=== PATIENT | male | born 1965 | race Caucasian/White ===

== ENCOUNTER 2017-06-05 08:00 | Outpatient (CLI) | payer OTHER | END 2017-06-05 08:01 | disposition home or self-care (01) | LOC: BICULT 08:00 | PROVIDERS: ATTEND Otolaryngology Plastic Surgery within the Head & Neck | DX: E04.1 Nontoxic single thyroid nodule (principal) | CPT/HCPCS: 76536 ==

== ENCOUNTER 2018-05-29 06:47 | Outpatient (CLI) | payer OTHER ==
--- NOTE | 2018-05-29 08:58 | ULT ---
THYROID ULTRASOUND: Date: 05/29/18 HISTORY: Goiter. Nodule. COMPARISON: None. FINDINGS: Thyroid isthmus measures 0.3 cm. Right thyroid lobe measures 1.7 x 5.5 x 1.7 cm. Left thyroid lobe me asures 1.5 x 4.8 x 1.2 cm. In the mid to lower aspect of the right thyroid lobe is a predominantly cystic nodule with a possible peripheral solid component. Nodule measures 1.7 x 1.6 x 1.4 cm. IMPRESSION: Solitary nodule in the right thyroid lobe. Based upon TI-RADS calculator, the nodule has a value of T R4 (lesion is slightly taller than it is wide). Fine needle aspiration is recommended. POS: PRISCA
== END 2018-05-29 06:48 | disposition home or self-care (01) ==
LOC: BICULT 06:47
PROVIDERS: ATTEND Otolaryngology Plastic Surgery within the Head & Neck
DX: E04.1 Nontoxic single thyroid nodule (principal); E04.9 Nontoxic goiter, unspecified
CPT/HCPCS: 76536

== ENCOUNTER 2018-11-26 14:33 | Outpatient (CLI) | payer OTHER ==
--- NOTE | 2018-11-26 15:52 | ULT ---
ULTRASOUND THYROID: DATE: 11/26/2018 HISTORY: Follow-up thyroid nodule in 53-year-old male COMPARISON: Prior thyroid ultrasounds of 05/29/2018, 06/05/2017, 05/06/2016, 05/23/2014, 04/25/2014, 11/18/2013, a nd 11/02/2013. FINDINGS: Isthmus: 0.3 cm AP. Right lobe: 5.0 x 1.6 x 1.8 cm. Left lobe: 4.8 x 1.1 x 1.3 cm. At the lower pole of the right lobe of the thyroid gland, there is a mixed solid and cystic nodule me asuring approximately 2.2 x 1.7 x 1.7 cm. The cystic component, located more superiorly, is 1.2 x 1.4 x 1.5 cm. The solid component has echogenicity that is very similar to that of normal thyroid par enchyma. TIRADS classification: Composition: Mixed cystic and solid, 1 point Echogenicity: Isoechoic, 1 point Shape: Wider than tall on sagittal images (0 points), but taller than wide on transverse image (3 poi nts) Margin: Smooth, 0 points Echogenic foci, none, 0 points. Depending on the interpretation of its shape, this is either a TIRADS category 2-benign, or TIRADS ca tegory 4 (5 total points). However, this nodule has been stable for 5 years, and therefore no further follow-up is recommended. IMPRESSION: Benign solid and cystic nodule in right lobe of thyroid gland, unchanged in 5 years. No further follo w-up is recommended.
== END 2018-11-26 14:34 | disposition home or self-care (01) ==
LOC: BICULT 14:33
PROVIDERS: ATTEND Otolaryngology Plastic Surgery within the Head & Neck
DX: E04.1 Nontoxic single thyroid nodule (principal)
CPT/HCPCS: 76536

== ENCOUNTER 2021-03-16 08:37 | Outpatient (CLI) | payer OTHER | END 2021-03-16 08:38 | disposition home or self-care (01) | LOC: BICULT 08:37 | PROVIDERS: ATTEND Otolaryngology Plastic Surgery within the Head & Neck | DX: E04.1 Nontoxic single thyroid nodule (principal) | CPT/HCPCS: 76536 ==

== ENCOUNTER 2021-07-05 08:29 | Outpatient (CLI) | payer OTHER ==
[2021-07-06 09:12] LABS: SARS-CoV-2 PCR by NAA Not Detected (NotDetected)
== END 2021-07-05 08:30 | disposition home or self-care (01) ==
LOC: LABBT 08:29
PROVIDERS: ATTEND Surgery
DX: Z01.812 Encounter for preprocedural laboratory examination (principal); K40.20 Bilateral inguinal hernia, without obstruction or gangrene, not specified as recurrent; Z20.822 Contact with and (suspected) exposure to COVID-19
CPT/HCPCS: U0003; U0005

== ENCOUNTER 2021-07-10 06:44 | Day surgery (SDC) | payer OTHER ==
[2021-06-28 12:30] VITALS: BMI 27.9
[2021-07-10] MEDS ORDERED: Lidocaine 1% MPF 2 ML VIAL ONE (07:30)
[2021-07-10 07:53] LABS: #Monocytes 0.3 thou/uL (0.11-0.59); #Neutrophils 2.8 thou/uL (1.40-6.50); %Basophils 0.4 % (0.0-1.0); %Eosinophils 0.8 % (0.0-10.0); %Lymphocytes 24.4 % (21.0-51.0); %Monocytes 7.7 % (0.0-10.0); %Neutrophils 66.7 % (42.0-75.0); Mean Corpuscular Hemoglobin 32.5 pg (27.0-31.0); Mean Corpuscular Volume 92.7 fL (78.0-98.0); Mean Platelet Volume 8.1 fL (7.4-10.4); Platelet Count 141 thou/uL (130-400); White Blood Cell (WBC) Count 4.1 thou/uL (4.8-10.8)
[2021-07-10 08:12] LABS: Anion Gap 9 mmol/L (10-20); BUN (Urea Nitrogen) 13 mg/dL (8.4-25.7); Calc. Creatinine Clearance 114 mL/min (70-130); Calcium 9.1 mg/dL (7.8-10.44); Carbon Dioxide 27 mmol/L (22-29); Chloride 105 mmol/L (98-107); Glucose 95 mg/dL (70-105); Potassium 3.8 mmol/L (3.5-5.1); Sodium 137 mmol/L (136-145)
[2021-07-10] MEDS ORDERED: Bupivacaine 0.25% HCL 30 ML VIAL ONE (08:19)
[2021-07-10] MEDS ORDERED: Xylocaine 1% w/ Epi 1:100K 10 ML VIAL ONE (08:19)
[2021-07-10] MEDS ORDERED: Fentanyl 100 MCG/2 ML VIAL ONE ×2 (09:03→11:03)
[2021-07-10] MEDS ORDERED: Scopolamine 1.5 mg/72 hour Patch ONE (09:07)
[2021-07-10] MEDS ORDERED: ceFAZolin 2 GM/Dextrose 50 ML IVPB ONE (09:14)
[2021-07-10] MEDS ORDERED: PROPOFOL 200 MG/20 ML VIAL ONE (09:25)
[2021-07-10] MEDS ORDERED: Lidocaine 1% PF 5 ML VIAL ONE (09:25)
[2021-07-10] MEDS ORDERED: Esmolol 100 MG/10 ML VIAL ONE (09:25)
[2021-07-10] MEDS ORDERED: Rocuronium Bromide 10 MG/ML (10ML VIAL) ONE (09:25)
[2021-07-10] MEDS ORDERED: diphenhydrAMINE 50 MG/ML VIAL ONE (09:25)
[2021-07-10] MEDS ORDERED: Dexamethasone 20 MG/5 ML VIAL ONE (09:25)
[2021-07-10] MEDS ORDERED: Ondansetron PF 4 MG/2 ML Vial ONE (09:25)
[2021-07-10] MEDS ORDERED: Ketorolac Tromethamine 30 MG/ML VIAL ONE (09:25)
[2021-07-10] MEDS ORDERED: Glycopyrrolate 0.2 MG/ML 5 ML SYRINGE ONE (09:25)
[2021-07-10] MEDS ORDERED: HYDROcodone/Acetaminophen 5/325 mg Tablet ONE (12:54)
== END 2021-07-10 13:30 | disposition home or self-care (01) ==
LOC: SDC 06:44
PROVIDERS: ATTEND Surgery
PROC: 0YUA4JZ Supplement Bilateral Inguinal Region with Synthetic Substitute, Percutaneous Endoscopic Approach (ICD-10-PCS; principal; 2021-07-10)
DX: K40.20 Bilateral inguinal hernia, without obstruction or gangrene, not specified as recurrent (principal); Z79.899 Other long term (current) drug therapy
CPT/HCPCS: 80048; 85025; C1781; J0690; J1100; J1200; J1885; J2405; J2704; J3010; S0020

== ENCOUNTER 2023-05-13 12:51 | Outpatient (CLI) | payer OTHER | END 2023-05-13 12:52 | disposition home or self-care (01) | LOC: BICULT 12:51 | PROVIDERS: ATTEND Otolaryngology Plastic Surgery within the Head & Neck | DX: E04.1 Nontoxic single thyroid nodule (principal) | CPT/HCPCS: 76536 ==